=== PATIENT | female | born 1980 | race Caucasian/White ===

== ENCOUNTER 2018-12-05 15:50 | Emergency (ER) | payer OTHER ==
[~2018-12-05] VITALS: Ht 170.2 cm; Wt 86.2 kg
[~2018-12-05 15:50] MED LIST: ANUSOL-HC25 MG RC; ANUSOL-HC30 G2 RC; TRAMADOL HCL50 MG PO
== END 2018-12-05 21:27 | disposition home or self-care (01) ==
LOC: ER 15:50
DX: G43.909 Migraine, unspecified, not intractable, without status migrainosus (principal); B34.9 Viral infection, unspecified

== ENCOUNTER 2019-09-28 12:00 | Day surgery (SDC) | payer OTHER | END 2019-09-28 16:25 | disposition home or self-care (01) | LOC: AMB-ENDOS 12:00 → ADM 14:00 → AMB-ENDOS 16:25 | PROVIDERS: ATTEND Surgery | DX: K62.89 Other specified diseases of anus and rectum (principal); K64.8 Other hemorrhoids; Z20.828 Contact with and (suspected) exposure to other viral communicable diseases ==

== ENCOUNTER 2020-11-07 07:28 | Day surgery (SDC) | payer OTHER | END 2020-11-07 12:35 | disposition home or self-care (01) | LOC: AMB-ENDOS 07:28 | PROVIDERS: ATTEND Surgery | DX: K63.5 Polyp of colon (principal); Z20.822 Contact with and (suspected) exposure to COVID-19 ==

== ENCOUNTER 2022-08-14 08:52 | Day surgery (SDC) | payer OTHER | END 2022-08-14 14:10 | disposition home or self-care (01) | LOC: AMB-ENDOS 08:52 | PROVIDERS: ATTEND Surgery | DX: D12.6 Benign neoplasm of colon, unspecified (principal); K59.09 Other constipation; Z20.822 Contact with and (suspected) exposure to COVID-19; Z80.0 Family history of malignant neoplasm of digestive organs ==

== ENCOUNTER 2023-10-01 07:33 | Day surgery (SDC) | payer OTHER ==
[2023-10-01] MEDS ORDERED: MIDAZOLAM HCL 2 MG/2 ML VIAL IV ONE (13:00)
[2023-10-01] MEDS ORDERED: fentaNYL CITRATE 50 MCG/ML AMPUL IV PUSH ONE (13:00)
[2023-10-01] MEDS ORDERED: DIPHENHYDRAMINE HCL 50 MG/ML VIAL 1ML IV ONE (13:00)
== END 2023-10-01 14:50 | disposition home or self-care (01) ==
LOC: AMB-ENDOS 07:33
PROVIDERS: ATTEND Surgery
DX: D12.6 Benign neoplasm of colon, unspecified (principal); Z85.038 Personal history of other malignant neoplasm of large intestine; Z88.6 Allergy status to analgesic agent

== ENCOUNTER 2024-11-03 12:03 | Emergency (ER) | payer OTHER ==
[~2024-11-03] VITALS: Ht 170.2 cm; Wt 83.0 kg
[2024-11-03 15:55] LABS: BASO % 0.2 % (0.1-1.2); EOS # 0.08 (0.04-0.54); EOS % 0.8 % (0.7-7.0); LYMPH # 2.19 (1.18-3.74); LYMPH % 21.0 % (19.3-53.1); MEAN PLATELET VOLUME 11.50 fl (9.4-12.4); MONO # 0.29 (0.24-0.82); MONO % 2.8 % (4.7-12.5); NEUT # 7.84 (1.56-6.13); NEUT % 75.1 % (34.0-71.1); RED CELL DISTRIBUTION WIDTH 13.1 % (11.6-14.4)
[2024-11-03 16:25] LABS: BUN CREA RATIO 16.0 (7.0-25.0); CREATININE SERUM 0.89 mg/dL (0.55-1.02); GFR 68.59; GLUCOSE FASTING 97.0 mg/dL (65-100); OSMOLALITY SERUM 282.0 MOSM/KG (275-295)
== END 2024-11-03 18:40 | disposition home or self-care (01) ==
LOC: ER 12:03
PROVIDERS: General Practice
DX: N93.8 Other specified abnormal uterine and vaginal bleeding (principal); Z88.6 Allergy status to analgesic agent; G43.909 Migraine, unspecified, not intractable, without status migrainosus

== ENCOUNTER → 2024-11-23 | Outpatient (CLI) | payer OTHER ==
[~2024-11-23] VITALS: Ht 170.2 cm; Wt 83.0 kg
[~2024-11-23] MED LIST changes: +CEFAZOLIN SODIUM 1,000 MG VIAL IV ONE; +HEMOSTATIC MATRIX 1 KIT KIT TOP ONE; +METRONIDAZOLE/SODIUM CHLORIDE 500 MG/100 ML PIGGYBACK IV ONE; +MORPHINE SULFATE 4 MG/ML CARTRIDGE IV PRN; +PHENOL 177 ML BOTTLE MM ONE; +POVIDONE-IODINE 118 ML BOTT TOP ONE; +SUGAMMADEX SODIUM 200 MG/2 ML VIAL IV ONE; +SURGIFLO APPLICATOR 1 EACH APPL TOP ONE; +TRANEXAMIC ACI650 MG PO
[2024-11-23 10:10] VITALS: BP 102/71
[2024-11-23 10:58] LABS: BASO % 0.4 % (0.1-1.2); EOS # 0.17 (0.04-0.54); EOS % 3.8 % (0.7-7.0); LYMPH # 1.77 (1.18-3.74); LYMPH % 39.7 % (19.3-53.1); MEAN PLATELET VOLUME 10.60 fl (9.4-12.4); MONO # 0.28 (0.24-0.82); MONO % 6.3 % (4.7-12.5); NEUT # 2.21 (1.56-6.13); NEUT % 49.6 % (34.0-71.1); RED CELL DISTRIBUTION WIDTH 14.2 % (11.6-14.4)
[2024-11-23 11:05] LABS: URINE APPEARANCE Clear; URINE BILIRRUBIN Negative (NEGATIVE); URINE BLOOD Trace; URINE COLOR Yellow; URINE GLUCOSE Negative (NEGATIVE); URINE KETONE Negative (NEGATIVE); URINE LEUKOCYTE Negative; URINE NITRATE Negative; URINE PROTEIN Negative (NEGATIVE); URINE UROBILINOGEN 0.2 E.U./dl
[2024-11-23 11:10] LABS: URINE BACTERIA 95.9 uL (0.0-1933); URINE EPITHELIAL CELLS 7.8 uL (0.0-38.8); URINE RBC 7.4 uL (0.0-20.8); URINE WBC 23.9 uL (0.0-23.2)
[2024-11-23 11:17] LABS: URINE CAST 0.00 uL (0.0-1.40)
[2024-11-23 11:28] LABS: INR < 0.93
[2024-11-23 11:58] LABS: ALT/SGPT 19.0 U/L (12-78); AST/SGOT 15.0 U/L (15-37); BILIRUBIN TOTAL 0.28 mg/dL (0.3-1.2); BUN CREA RATIO 21.0 (7.0-25.0); CREATININE SERUM 0.61 mg/dL (0.55-1.02); GFR 106.06; GLOBULINA 2.9 G/DL (2.4-3.5); GLUCOSE FASTING 85.0 mg/dL (65-100); OSMOLALITY SERUM 282.0 MOSM/KG (275-295)
== END | disposition home or self-care (01) ==
LOC: RAD 08:00 → OB/GYN 11-26 08:45 → EDSTATUS 11-26 08:45 → OB/GYN 11-26 13:00
PROVIDERS: ATTEND General Practice
DX: N93.0 Postcoital and contact bleeding (principal); D25.0 Submucous leiomyoma of uterus; D50.0 Iron deficiency anemia secondary to blood loss (chronic)